=== PATIENT | female | born 2000 | race Caucasian/White ===

== ENCOUNTER 2022-02-01 18:32 | Emergency (ER) | payer OTHER, SELFPAY ==
--- NOTE | 2022-02-01 18:38 | ED.URI ---
HPI - URI/Sore Throat General Chief Complaint: Upper Respiratory Infection Stated Complaint: sore throat runny nose Time Seen by Provider: 02/01/22 18:38 Source: patient and RN notes reviewed History of Present Illness HPI Narrative: patient is a 21-year-old female who presents to the Urgent Care with family member with complaints of sore throat and runny nose that started yesterday. Patient states that she has had no fever, nausea or vomiting. States that she took 1 amoxicillin yesterday that she had left over. Patient also took 1 dose of Jessica. No other acute complaints. Denies any ill exposures. No acute distress noted. Patient aware of plan of care. Some parts of this dictation were generated by voice recognition software and may contain typographical and/or grammatical inaccuracies. Related Data Home Medications Medication Instructions Recorded Confirmed quetiapine 25 mg tablet 25 mg DAILY 02/01/22 02/01/22 venlafaxine 75 mg capsule,extended 75 mg PO DAILY 02/01/22 02/01/22 release 24 hr Allergies Allergy/AdvReac Type Severity Reaction Status Date / Time No Known Allergies Allergy Verified 02/01/22 18:49 Review of Systems Review of Systems: CONSTITUTIONAL: Denies fever, chills, or sweats. EYES: Denies visual changes, redness, or discharge. ENT: Reports of runny nose and sore throat CARDIOVASCULAR: Denies chest pain, palpitations, or edema. RESPIRATORY: Denies cough or dyspnea. GASTROINTESTINAL: Denies abdominal pain, nausea, vomiting, or diarrhea. GENITOURINARY: Denies dysuria or hematuria. SKIN: Denies rash or itching. MUSCULOSKELETAL: Denies back pain, joint pain, or myalgia. NEUROLOGIC: Denies headache, numbness, or weakness. All other systems reviewed are negative, except as documented in HPI. PMFSH Comments At the time of my signature, I reviewed and agree with the nursing past medical, surgical, social, and family history. There is no relevant family history pertinent to the patient complaint. Exam Narrative: GENERAL: This is a well-nourished, well-developed patient, in no apparent distress. HEAD: normocephalic, atraumatic. EYES: PERRL. Sclera clear/white. Vision is grossly intact. EARS: External ears normal, auditory canals clear and without drainage, TMs normal without perforation. Hearing grossly intact. NOSE: External nose normal with no obvious nasal discharge, nares without redness, clear rhinorrhea. THROAT: Mucous membranes moist, mild bilateral tonsillar edema with left exudate and moderate postnasal drainage. NECK: Neck supple, non-tender without lymphadenopathy CARDIOVASCULAR: Regular rate and rhythm without murmurs, gallops, or rubs. RESPIRATORY: Clear to auscultation. Breath sounds equal bilaterally. No wheezes, rales, or rhonchi. SKIN: warm, intact with no suspicious lesions or rash, good texture and turgor. NEURO: awake, alert, and oriented to person, place and time. There were no obvious focal neurologic abnormalities. EXTREMITIES: No clubbing, cyanosis, or edema. 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 Course Course Level of Care: Express Care Visit Vital Signs Vital signs: Vital Signs Temperature 98.6 F 02/01/22 18:40 Pulse Rate 106 H 02/01/22 18:40 Respiratory Rate 20 02/01/22 18:40 Blood Pressure 102/58 L 02/01/22 18:40 Pulse Oximetry 99 02/01/22 18:40 Oxygen Delivery Room Air 02/01/22 18:40 Temperature 98.6 F 02/01/22 18:40 Pulse Rate 106 H 02/01/22 18:40 Respiratory Rate 20 02/01/22 18:40 Blood Pressure 102/58 L 02/01/22 18:40 Pulse Oximetry 99 02/01/22 18:40 Oxygen Delivery Room Air 02/01/22 18:40 Reviewed MDM - URI/Sore Throat MDM Narrative Medical decision making narrative: reviewed lab results with the patient. She is aware that strep swab was negative. Educated patient on culture and we will call within 72 hours if culture is positive and antibiotics are necessary. Advised patient to laurent
[2022-02-01 18:40] VITALS: BP 102/58; PULSE 106; RESP 20; TEMP 37; O2SAT 99
== END 2022-02-01 19:08 | disposition home or self-care (01) ==
PROVIDERS: Emergency Provider Nurse Practitioner Family
DX: J02.9 Acute pharyngitis, unspecified (principal)
CPT/HCPCS: 87081; 87880; 99213; G0463